=== PATIENT | male | born 2000 | race Caucasian/White ===

== ENCOUNTER 2024-07-31 07:16 | Emergency (ER) | payer MEDICAID, SELFPAY ==
[2024-07-31] VITALS (7 sets, daily range): BP systolic 111–147; BP diastolic 59–92; PULSE 76–93; RESP 17–20; TEMP 36.8–39.3; O2SAT 96–98; BMI 27.1
--- NOTE | 2024-07-31 07:37 | XR_ITS ---
Examination: CT abdomen with intravenous contrast CT pelvis with intravenous contrast 2-D coronal reconstructions 2-D sagittal reconstructions Date and time of exam:July 31, 2024 0853 hours INDICATIONS: Abdominal pain and gastrointestinal bleeding today. CTDI: vol (mGy) 6.86 DLP: (mGycm) 401 Technique: Multiple axial sections of the abdomen and pelvis have been obtained. 64 slice high-resolution scanner used. 3 mm axial sections have been obtained, post intravenous injection 60 cc [id number] 2-D sagittal, coronal reconstructions obtained. Low dose protocols were performed. One or more of the following dose reduction techniques were used; automated exposure control, adjustment of the mA and/or KV according to patient size, use of iterative reconstruction technique. Findings: No focal liver lesions Splenomegaly 15 cm No gallstones No pancreatic or adrenal mass No renal or ureteral calculi, no hydronephrosis Mildly fluid distended small bowel loops Aorta normal size Normal appendix No bowel obstruction or diverticulitis Colonic bowman some mild diffuse hyperemia No prostatomegaly Urinary bladder intact IMPRESSION: Moderate splenomegaly Mild small bowel ileus Mild diffuse nonspecific colitis pattern
--- NOTE | 2024-07-31 07:37 | PD.EDRME ---
Rapid Medical Screening Exam E Arrival date/time: 07/31/24 07:16 24-year-old male presents to the emergency department today for complaints of nausea and vomiting abdominal pain having black stools and throwing up black vomitus Chief Complaint: GI Bleed Vital signs: Vital Signs Temperature 98.3 F 07/31/24 07:29 Pulse Rate 76 07/31/24 07:29 Respiratory Rate 18 07/31/24 07:29 Blood Pressure 147/92 H 07/31/24 07:29 Pulse Oximetry (%) 98 07/31/24 07:29 Oxygen Delivery Method Room Air 07/31/24 07:29
[2024-07-31 08:08] LABS: Basophils % (Auto) 0 % (0-2.5); Eosinophils # (Auto) 0.1 Thou/mm3 (0.0-0.5); Eosinophils % (Auto) 1 % (0-10); Hematocrit 49.9 % (41.0-53.0); Hemoglobin 17.8 g/dL (13.5-16.0); Immature Granulocytes % (Auto) 0 % (0-0); Immature Granulocytes Auto 0.03 Thou/mm3 (0.00-0.00); Lymphocytes # (Auto) 1.2 Thou/mm3 (1.0-4.8); Lymphocytes % (Auto) 10 % (10-50); Mean Corpuscular HGB Conc 35.7 g/dl (31.0-37.0); Mean Corpuscular Volume 90 fL (80-100); Monocytes # (Auto) 0.6 Thou/mm3 (0.0-0.8); Monocytes % (Auto) 5 % (0-12); Neutrophils # (Auto) 9.5 Thou/mm3 (1.8-7.7); Neutrophils % (Auto) 83 % (37-80); Nucleated Red Blood Cell % 0 /100 WBC (0); Platelet Count 245 Thou/mm3 (140-440); RDW Standard Deviation 39.4 fL (35.1-43.9); Red Blood Count 5.57 Miln/mm3 (4.50-5.90); White Blood Count 11.4 Thou/mm3 (3.8-10.6)
[2024-07-31 08:21] LABS: Alanine Aminotransferase 114 U/L (10-49); Albumin, Serum 5.2 gm/dL (3.5-5.0); Albumin/Globulin Ratio 1.9 (1.2-2.2); Alkaline Phosphatase 112 U/L (46-116); Anion Gap 5 (7-16); Aspartate Amino Transferase 273 U/L (0-34); BUN/Creatinine Ratio 15 Ratio (12-20); Bilirubin,Total 1.5 mg/dL (0.3-1.2); Blood Urea Nitrogen 15 mg/dL (9-23); Calcium 10.1 mg/dL (8.3-10.6); Calcium (Corrected) 10.1 mg/dL (8.5-10.1); Carbon Dioxide 31.9 mMol/L (20.0-31.0); Chloride 105 mMol/L (98-107); Estimated Creatinine Clearance 107.4 mL/min (>60); Globulin 2.8 gm/dL (2.3-3.5); Glucose 104 mg/dL (74-106); Lipase 28 U/L (12-53); Osmolality,Calculated 283 (275-295); Potassium 5.2 mMol/L (3.4-5.1); Sodium 142 mMol/L (136-145); eGFR > 60 See Note
[2024-07-31 08:29] LABS: INR 1.2 (0.9-1.3); Partial Thromboplastin Time 29.3 Seconds (22.0-36.0); Prothrombin Time 12.5 Seconds (9.0-12.2)
[2024-07-31] MEDS: PANTOPRAZOLE INJ 40 MG VIAL 80 MG IV (08:42)
[2024-07-31 09:01] LABS: Collection Type, Urine Clean Catch
[2024-07-31] MEDS: PANTOPRAZOLE/NS 80MG IV PREMIX 80 MG/100 ML BAG 10 MG IV (09:11)
[2024-07-31 09:13] LABS: Bilirubin,Urine Negative (Negative); Blood,Urine Negative (Negative); Clarity,Urine Clear (Clear/Hazy); Color,Urine Yellow (Lt Yel-Yel); Culture Indicated,Urine Not Indicated; Glucose, Urine Negative (Negative); Ketones,Urine Negative (Negative); Leukocyte Esterase,Urine Negative (Negative); Nitrite,Urine Negative (Negative); Protein,Urine Trace (Neg - Trace); RBC,Urine 2 /hpf (0-3); Specific Gravity,Urine 1.031 (1.001-1.035); Squamous Epithelial Cell,Urine 1 /hpf (0-5); Urobilinogen,Urine Negative mg/dL (0.0-1.0); WBC,Urine 1 /hpf (0-5)
[2024-07-31] MEDS: ONDANSETRON INJ 2 MG/ML INJ 2 ML 4 MG IV (09:20)
[2024-07-31] MEDS: MORPHINE SULF INJ 10 MG/ML VIAL 5 MG IVP ×2 (09:21→11:54)
--- NOTE | 2024-07-31 09:33 | EDNOTE_ITS ---
ED GI Bleed RME/HPI General Chief complaint: GI Bleed Stated complaint: GI BLEED Time Seen by Provider: 07/31/24 07:48 Arrival date/time: 07/31/24 07:16 RME / HPI RME / HPI Narrative: 07/31/24 07:16 24-year-old male presents to the emergency department today for complaints of nausea and vomiting abdominal pain having black stools and throwing up black vomitus DR. HUMPHREY MAIN ED EVALUATION: 24 year old male with no past medical history presents to the Emergency Department accompanied by his girlfriend with complaint of black stools since yesterday night. He also complains of severe abdominal pain, nausea, vomiting, and diarrhea. He states his pain was severe ; but now it is better rated 3/10 after he had a bowel movement at 0930 hours. No similar symptoms in the past. No other symptoms reported at this time. Related Data Previous Rx's ?Medication ?Instructions ?Recorded ibuprofen 800 mg tablet 800 mg PO TID PRN pain #30 t abs 10/06/21 Allergies Allergy/AdvReac Type Severity Reaction Status Date / Time No Known Allergies Allergy Unverified 07/31/24 09:12 Review of Systems Review of Systems Systems Reviewed: All systems reviewed, normal except as documented Past Medical History Past Medical History CARDIAC: Negative Cardiac Disorders RESPIRATORY: Negative Asthma GENITOURINARY: Negative Renal Disease ENDOCRINE: Negative Diabetes Mellitus Type 2 HEMATOLOGIC: Negative Sickle Cell Disease Social History SMOKING STATUS: Never smoker SUBSTANCE USE: does not use ALCOHOL: Never ED Exam Narrative Physical exam: GENERAL APPEARANCE: alert and oriented x 4, well-developed, well-nourished, no acute distress VITALS: All vitals were reviewed and the pulse ox is 98% on room air, which is normal according to my interpretation. HEENT: Normocephalic, atraumatic; pupils equal, round, reactive to light; EOMI; mucous membranes pink, moist; oropharynx clear NECK: Supple LUNGS: CTABL; no wheezes, no rales, no rhonchi HEART: Regular rate, regular rhythm; normal S1, S2; no murmurs ABDOMEN: mildly distended; normal BS; soft, no tenderness, no guarding, no rebound; no masses, no organomegaly, no hernia RECTAL: rectal exam deferred; patient gave a stool sample shows soft brown stools, guaiac positive. BACK: no CVA tenderness EXTREMITIES: atraumatic; no edema NEUROLOGIC: awake; alert and oriented x4; cranial nerves II-XII grossly intact; no focal sensory or motor deficits PSYCHIATRIC: appropriate mood and affect SKIN: warm, dry, normal color; no rashes Course Quality Measures none Orders Category Date Time Status CT Screening NOW Care 07/31/24 07:37 Active Insert IV NOW Care 07/31/24 07:37 Active Occult Blood,Stool (Nursing) NOW Care 07/31/24 09:[address] abdomen pelvis w con Stat Exams 07/31/24 07:37 Completed US abdomen limited Stat Exams 07/31/24 10:04 Completed Alcohol, Blood Medical Stat Lab 07/31/24 07:51 Completed CBC Stat Lab 07/31/24 07:51 Completed Comprehensive Metabolic Panel Stat Lab 07/31/24 07:51 Completed Drug Screen,Urine Stat Lab 07/31/24 08:49 Completed Lipase Stat Lab 07/31/24 07:51 Completed PT [Prothrombin Time with INR] Stat Lab 07/31/24 07:51 Completed PTT [Partial Thromboplastin Time] Stat Lab 07/31/24 07:51 Completed UA, C/S IF [Urinalysis, C/S if Indicated] Stat Lab 07/31/24 08:19 Completed Morphine Inj Med 07/31/24 09:09 Discontinued 5 mg IVP X1 ONE Morphine Inj Med 07/31/24 11:41 Discontinued 5 mg IVP X1 ONE Ondansetron Inj [Zofran Inj] Med 07/31/24 09:09 Discontinued 4 mg IV X1 ONE Pantoprazole Inj [Protonix Inj] Med 07/31/24 07:37 Discontinued 80 mg IV X1 ONE Pantoprazole/Ns 80Mg IV Premix [Protonix/NS 80mg IV Med 07/31/24 08:11 Active Premix] 80 mg in 100 ml IV X1 Ringers Lactated 1000 ml [Lactated Ringers] 1,000 ml Med 07/31/24 09:32 Discontinued IV 999 mls/hr Sodium Chloride 0.9% 1000 ml [Ns] 1,000 ml Med 07/31/24 09:32 Discontinued IV 999 mls/hr Sodium Chloride 0.9% 1000 ml [Ns] 1,000 ml Med 07/31/24 10:58 Discontinued IV 999 mls/hr Vital Signs Vital signs: Vital Signs Temperature 98.3 F 04/28/25 07:29 Pulse Rate 76 07/31/24 07:29 Respiratory Rate 18 07/31/24 07:29 Blood Pressure 147/92 H 07/31/24 07:29 Pulse Oximetry (%) 98 07/31/24 07:29 Oxygen Delivery Method Room Air 07/31/24 07:29 GI Bleed MDM Narrative MDM Narrative:: I, Florencia Olmedo, geoffrey scribing for and in the presence of Dr. Humphrey. Patient data External records reviewed:: [facility] previous records (Reviewed last ED visit dated 10/06/21, discharged with the following: COVID-19) Clinical information provided by:: patient Social determinants that could affect healthcare access:: none Patient has the following chronic illnesses:: Denies any PMHx, surgeries, daily medications, or known allergies. How is presenting disease/condition affected by chronic disease/condition?: no chronic disease Evaluation data The following diagnostics were reviewed and interpreted by me:: lab results and radiology exam(s) Lab and/or radiology exams considered but not ordered:: none Interpretation Summary: Procedure(s): CT abdomen pelvis w con Accession Number(s): [id number] cc: Conner (MATHEW),Paul CARMONA; Truman Orosco MD; Yovanny Veliz MD~ Examination: CT abdomen with intravenous contrast CT pelvis with intravenous contrast 2-D coronal reconstructions 2-D sagittal reconstructions Date and time of exam:July 31, 2024 0853 hours INDICATIONS: Abdominal pain and gastrointestinal bleeding today. CTDI: vol (mGy) 6.86 DLP: (mGycm) 401 Technique: Multiple axial sections of the abdomen and pelvis have been obtained. 64 slice high-resolution scanner used. 3 mm axial sections have been obtained, post intravenous injection 60 cc [id number] 2-D sagittal, coronal reconstructions obtained. Low dose protocols were performed. One or more of the following dose reduction techniques were used; automated exposure control, adjustment of the mA and/or KV according to patient size, use of iterative reconstruction technique. Findings: No focal liver lesions Splenomegaly 15 cm No gallstones No pancreatic or adrenal mass No renal or ureteral calculi, no hydronephrosis Mildly fluid distended small bowel loops Aorta normal size Normal appendix No bowel obstruction or diverticulitis Colonic bowman some mild diffuse hyperemia No prostatomegaly Urinary bladder intact IMPRESSION: Moderate splenomegaly Mild small bowel ileus Mild diffuse nonspecific colitis pattern Dictated By: Truman Orosco MD Procedure(s): US abdomen limited Accession Number(s): [id number] cc: Truman Orosco MD; Lorie Humphrey MD; Yovanny Veliz MD~ Examination: Abdomen sonogram, Limited Date and time of exam: July 31, 2024 1141 hours INDICATIONS: Vomiting beginning 2 days ago, diagnosis gastrointestinal bleeding this morning elevated liver function tests on laboratory examination today Technique: Real-time sutton scale transabdominal sonographic images of the upper abdomen obtained. Findings: Normal gallbladder Normal common bile axial 0.3 cm Pancreatic head 2.6 cm Liver 16.2 cm fatty infiltration no focal liver lesions Normal hepatopedal portal venous flow Patent IVC IMPRESSION: Normal gallbladder Normal common bile duct. Mild hepatomegaly fatty liver no focal liver lesions Dictated By: Truman Orosco MD Medications / Prescriptions Medications or Prescriptions considered but not ordered:: none Medication administrations:: Medication Administration History Pantoprazole Sodium (Protonix/Ns 80mg Iv Premix) 80 mg in 100 mls @ 10 mls/hr IV X1 ONE Stop: 07/31/24 18:10 Last Admin: 07/31/24 09:11 Dose: 10 mls/hr Documented By: BEVERLY Discontinued Medications Lactated Ringer's (Lactated Ringers) 1,000 mls @ 999 mls/hr IV .Q1H1M ONE Stop: 07/31/24 10:32 Last Admin: 07/31/24 10:15 Dose: Not Given Documented By: BEVERLY Non-Admin Reason: Cancelled by Provider Sodium Chloride (Ns) 1,000 mls @ 999 mls/hr IV .Q1H1M ONE Stop: 07/31/24 10:32 Last Infusion: 07/31/24 11:33 Dose: Infused Documented By: Admin: 07/31/24 09:58 Dose: 999 mls/hr Documented By: SHAHANA Sodium Chloride (Ns) 1,000 mls @ 999 mls/hr IV .Q1H1M ONE Stop: 07/31/24 11:58 Last Admin: 07/31/24 11:33 Dose: 999 mls/hr Documented By: BEVERLY Morphine Sulfate (Morphine Sulf Inj 10 Mg/Ml Vial) 5 mg IVP X1 ONE Stop: 07/31/24 09:10 Last Admin: 07/31/24 09:21 Dose: 5 mg Documented By: BEVERLY Morphine Sulfate (Morphine Sulf Inj 10 Mg/Ml Vial) 5 mg IVP X1 ONE Stop: 07/31/24 11:42 Last Admin: 07/31/24 11:54 Dose: 5 mg Documented By: BEVERLY Ondansetron HCl (Ondansetron Inj 2 Mg/Ml Inj 2 Ml) 4 mg IV X1 ONE; Protocol Stop: 07/31/24 09:10 Last Admin: 07/31/24 09:20 Dose: 4 mg Documented By: BEVERLY Pantoprazole Sodium (Pantoprazole Inj 40 Mg Vial) 80 mg IV X1 ONE Stop: 07/31/24 07:38 Last Admin: 07/31/24 08:42 Dose: 80 mg Documented By: BEVERLY see above Consultations Consultation(s) initiated? (list below): No Diagnosis GI bleed differential diagnosis: esophageal varices, gastritis, Upper gastrointestinal hemorrhage, Lower gastrointestinal hemorrhage and hematochezia Most likely diagnosis given after review of the tests above:: Vomiting and diarrhea Gastroenteritis Admission Indicated Admission indicated?: not indicated Admission Request Was there a request for admission?: No Disposition Plan Disposition Plan: Discharge Discharge Attestation Discharge Attestation: The patient and all family members were given an opportunity to ask questions and understood the discharge instructions. Discharge instructions specifically effects, indications for sooner follow up or return to the emergency department, and the expected course of current diagnosis. Patient condition: Stable Discharge Plan Plan Patient Disposition: HOME (Self Care) Prescriptions/Referrals Prescriptions/Med Rec: No Action ibuprofen 800 mg tablet 800 mg PO TID PRN (Reason: pain) Qty: 30 0RF Referrals: Yovanny Veliz MD [Primary Care Provider] - In 1 week Problem List Clinical Impression: Vomiting and diarrhea, Gastroenteritis Patient/Caregiver Discharge Instructions Education Materials: ED Gastroenteritis, Viral (Adult), ED Vomiting and Diarrhea ... Print Language: Slovenian Stand Alone Forms: Ariana Award Info., Patient Portal Info Letter
[2024-07-31 09:52] LABS: Alcohol, Blood Medical < 10.0 mg/dL (0-10.0)
[2024-07-31] MEDS: SODIUM CHLORIDE 0.9% 1000 ML 1,000 ML 999 ML IV ×2 (09:58→11:33)
--- NOTE | 2024-07-31 10:04 | XR_ITS ---
Examination: Abdomen sonogram, Limited Date and time of exam: July 31, 2024 1141 hours INDICATIONS: Vomiting beginning 2 days ago, diagnosis gastrointestinal bleeding this morning elevated liver function tests on laboratory examination today Technique: Real-time sutton scale transabdominal sonographic images of the upper abdomen obtained. Findings: Normal gallbladder Normal common bile axial 0.3 cm Pancreatic head 2.6 cm Liver 16.2 cm fatty infiltration no focal liver lesions Normal hepatopedal portal venous flow Patent IVC IMPRESSION: Normal gallbladder Normal common bile duct. Mild hepatomegaly fatty liver no focal liver lesions
[2024-07-31 10:45] LABS: Amphetamine/Methamp Scrn,U Negative (Negative); Barbiturate Screen,Urine Negative (Negative); Benzodiazepines Screen,Urine Negative (Negative); Benzoylecgonine Screen, Ur Negative (Negative); Fentanyl Screen,Urine Negative (Negative); Opiate Screen,Urine Negative (Negative); THC Screen,Urine Negative (Negative)
--- NOTE | 2024-07-31 11:40 | PC.NURSE ---
RECEIVED VERBAL ORDER FROM ER PROVIDER FOR 5MG MORPHINE IV
[2024-07-31] MEDS: ACETAMINOPHEN 500 MG TABLET 1000 MG PO (14:24)
[2024-08-02 09:48] LABS: OBS Card Lot # 222; OBS Developer Lot # 125; OBS Performed By DORTR; OBS QC OK? Yes; Occult Blood, Stool Positive (Negative)
== END 2024-07-31 15:10 | disposition home or self-care (01) ==
PROVIDERS: Nurse Practitioner Primary Care; Emergency Provider Emergency Medicine; PCP Family Medicine
DX: K52.9 Noninfective gastroenteritis and colitis, unspecified (principal); K56.7 Ileus, unspecified; K92.1 Melena; K76.0 Fatty (change of) liver, not elsewhere classified; R16.2 Hepatomegaly with splenomegaly, not elsewhere classified
CPT/HCPCS: 36415; 74177; 76705; 80053; 80307; 80320; 81001; 82270; 83690; 85025; 85610; 85730; 87400; 87811; 96365; 96366; 99285; A4649; J2270; J2405; J2470; J3490; J7030; Q9967; A9270; G0480